=== PATIENT | female | born 1975 | race Caucasian/White ===

== ENCOUNTER 2021-01-29 20:18 | Emergency (ER) | payer MEDICAID ==
[~2021-01-29] VITALS: Ht 157.5 cm; Wt 131.5 kg
[2021-01-29] MEDS ORDERED: ORPHENADRINE CITRATE 60 MG/2 ML VIAL. IM ONE (20:45)
[2021-01-29] MEDS ORDERED: ORPH-16 PO (21:31)
--- NOTE | 2021-01-29 21:31 | PHYS DOC ---
General Adult EDM: Chief Complaint: SHOULDER INJURY HPI: HPI: Patient is a [age] year old [sex] who presents with [] Review of Systems: Review of Systems: Constitutional: Denies fever or chills Eyes: Denies redness or eye pain HENT: Denies nasal congestion or sore throat Respiratory: Denies cough or shortness of breath Cardiovascular: Denies chest pain or palpitations GI: Denies abdominal pain, nausea, or vomiting : Denies dysuria or hematuria Musculoskeletal: Denies back pain or joint pain Integument: Denies rash or skin lesions Neurologic: Denies headache, focal weakness or sensory changes Complete systems were reviewed and found to be within normal limits, except as documented in this note. Current Medications: Current Meds: Current Medications Medications (Trade) Dose Ordered Sig/Kylah Start Time Stop Time Status Last Admin Dose Admin Orphenadrine Citrate (Norflex) 60 mg 1X ONCE 01/29/21 20:45 01/29/21 21:17 DC 01/29/21 20:45 60 MG Allergies: Allergies: Allergies Coded Allergies Type Severity Reaction Last Updated Verified Penicillins Allergy Unknown 01/29/21 Yes Physical Exam: PE: Constitutional: Well developed, well nourished, no acute distress, non-toxic appearance HENT: Normocephalic, atraumatic Eyes: PERRL, EOMI, conjunctiva normal, no discharge Neck: Normal range of motion, no tenderness, supple Lungs & Thorax: No respiratory distress, equal chest rise and fall Abdomen: Soft, no tenderness Skin: Warm, dry, no erythema, no rash Back: No tenderness, no CVA tenderness Extremities: No tenderness, ROM intact, no edema Neurologic: Alert and oriented X 3, normal motor function, normal sensory functi on, no focal deficits noted Psychologic: Affect normal, judgment normal EKG: EKG: [] Radiology/Procedures: Radiology/Procedures: [] Heart Score: C/O Chest Pain: N/A Course & Med Decision Making: Course & Med Decision Making Pertinent Imaging studies reviewed. (See chart for details) Patient stable for discharge with outpatient follow-up with PCP/orthopedics. Orthopedic referral provided. Discussed findings and plan with patient and friend, who acknowledge understanding and agreement. Ashok Disclaimer: Ashok Disclaimer: This electronic medical record was generated, in whole or in part, using a voice recognition dictation system. Splinting Splinting : Location: Left shoulder Pre-Made Type: Shoulder sling Pre-Proc Neuro Vasc Exam: normal Post-Proc Neuro Vasc Exam: normal, unchanged from pre-exam Departure Departure: Impression: Primary Impression: Acute shoulder pain Qualified Codes: M25.512 - Pain in left shoulder Disposition: HOME / SELF CARE / HOMELESS Condition: STABLE Referrals: PCP,KIERRA (PCP) TOMEKA ALEMAN MD Patient Instructions: Arm Sling Use, [id number], Shoulder Pain, [id number] Additional Instructions: ICE area 20 min on then leave off next 20 mins. Repeat several times daily as needed for next few days. May also use over the counter Tylenol as needed for pain. Make sure to take arm out of sling at least 5 times daily and performed 10 shoulder circles in one direction then repeat 10x in the opposite direction to prevent a "frozen shoulder". Scripts Orphenadrine Citrate (ORPHENADRINE CITRATE) 100 Mg Tablet.er 1 TAB PO BID PRN for MUSCLE PAIN, #14 TAB 0 Refills Prov: JEANETH PRICE DO 01/29/21 JEANETH PRICE DO Jan 29, 2021 21:31
--- NOTE | 2021-01-29 22:03 | RAD ---
XR SHOULDER_LEFT 2+ VIEWS 01/29/2021 8:47 PM INDICATION: Left shoulder pain, no trauma COMPARISON: None available. TECHNIQUE: 3 views the left shoulder are provided. FINDINGS/ IMPRESSION: There is no acute fracture or dislocation. Joint spaces are maintained. Bone mineralization is within normal limits. Regional soft tissues are within normal limits. There is no soft tissue gas or osseou s erosion. No radiopaque foreign body. Electronically signed by: Sugar Foote MD (01/29/2021 10:00 PM) EMANI
== END 2021-01-29 21:55 | disposition home or self-care (01) ==
LOC: ER 20:18
DX: M25.512 Pain in left shoulder (principal); Z88.0 Allergy status to penicillin
CPT/HCPCS: 73030; 96372; 99283; J2360

== ENCOUNTER 2021-02-24 19:39 | Emergency (ER) | payer MEDICAID ==
[~2021-02-24] VITALS: Ht 157.5 cm; Wt 132.2 kg
[~2021-02-24 19:39] MED LIST: ORPH-16 PO
[2021-02-24] MEDS ORDERED: ORPH-16 PO (21:41)
[2021-02-24] MEDS ORDERED: ORPHENADRINE CITRATE 60 MG/2 ML VIAL. IM ONE (21:45)
[2021-02-24] MEDS ORDERED: IBUPROFEN 600 MG TABLET. PO ONE (21:45)
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
[2021-02-24 22:10] VITALS: BP 145/85
[2021-02-24] MEDS ORDERED: CYCL-331 PO (22:11)
== END 2021-02-24 22:14 | disposition home or self-care (01) ==
LOC: ER 19:39
DX: M54.5 Low back pain (principal); G89.29 Other chronic pain
CPT/HCPCS: 96372; 99283; J2360